=== PATIENT | female | born 1995 | race Caucasian/White ===

== ENCOUNTER 2017-04-22 21:30 | Emergency (ER) | payer OTHER ==
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
== END 2017-04-22 22:55 | disposition home or self-care (01) ==
LOC: ER 21:30
DX: S90.32XA Contusion of left foot, initial encounter (principal); Z88.0 Allergy status to penicillin; V09.9XXA Pedestrian injured in unspecified transport accident, initial encounter